=== PATIENT | female | born 1940 | race Caucasian/White ===

== ENCOUNTER 2024-04-04 04:31 | Emergency (ER) | payer OTHER, SELFPAY ==
[2024-04-04 04:34] VITALS: BP 202/106
[2024-04-04 04:58] VITALS: BMI 31.3
[2024-04-04 05:00] VITALS: BP 159/88
[2024-04-04 06:00] VITALS: BP 121/65
--- NOTE | 2024-04-04 06:53 | ED.GENMED ---
History of Present Illness
General
Chief Complaint: Nose Bleed
Time Seen by Provider: 04/04/24 06:53
History of Present Illness
History of Present Illness:
TIME OF INITIAL ENCOUNTER: 7 AM
HPI:
The patient presents with a left-sided nosebleed that started at 3 AM. Currently the symptoms have resolved after direct pressure was applied in the triage area. She did not take her blood pressure medication yet. She takes aspirin for
preventative reasons. No anticoagulation
EXAM:
GENERAL: Well appearing in no distress
HEENT: There is an area that suggests recent bleeding from the anterior left nasal septum
NEUROLOGIC: Excellent strength all extremities, no obvious coordination deficits
PSYCHIATRIC: Appropriate mental status, normal insight and judgement
EXTREMITIES: Nontender, no edema, moves all extremities equally
SKIN: No rash, no lesions
NUMBER AND COMPLEXITY OF PROBLEMS ADDRESSED AT THE ENCOUNTER
� Chronic conditions affecting care: Diverticular disease, high blood pressure, hyperlipidemia, GERD, diabetes
� Acute Exacerbation and/or Progression of Chronic Illness: This is an acute problem
� Differential Diagnosis includes: Nosebleed due to dry air, high blood , anterior epistaxis, posterior epistaxis
AMOUNT AND/OR COMPLEXITY OF DATA TO BE REVIEWED AND ANALYZED
� I performed an independent evaluation of and my interpretation is:
EKG:
CT:
X-rays:
Laboratory Studies:
Other:
� Review of other/old records: I reviewed records, the patient had a excision of the left elbow mass in February 2023
� Clinical information was obtained by an independent historian: I spoke to daughter at bedside
� Prescriptions/Medications Considered but not given:
� Further testing considered but not performed:
RISK OF COMPLICATIONS AND/OR MORBIDITY OR MORTALITY OF PATIENT MANAGEMENT
� Social determinants of health affecting care: Lives at home
� Discussion with other providers:
� Escalation of care including admission/observation vs risk of discharge considered: The patient was given direct pressure and then I cauterized an anterior portion of the left nasal septum and there is been no further bleeding.
ANY OTHER UPDATES:
Just prior to discharge, no further bleeding
Past History
Past History
ED Past Medical History: HTN, Hypercholesterolemia and NIDDM
Social History
Tobacco: Non-smoker
Phy Exam
Physical Exam
Physical Exam:
See HPI
Course
Vital Signs
Initial and Last Documented VS:
Initial Vital Signs
Pulse Resp BP Pulse Ox
82 20 202/106 95
04/04/24 04:34 04/04/24 04:34 04/04/24 04:34 04/04/24 04:34
Last Documented Vital Signs
Pulse Resp BP Pulse Ox
80 16 124/84 93
04/04/24 07:04 04/04/24 07:04 04/04/24 07:04 04/04/24 07:15
Procedures
Nosebleed
Drug treatment: none
Treatment: local pressure applied and Silver nitrate cautery
Post treatment bleeding: none- good control
*Critical Care Note
Total Time (30-74mins, 75-104mins- exclusive of procedures): Not Applicable
ED Attending Note
-
Portions of this chart may have been created with voice recognition software.� Occasional wrong word or��sound alike� substitutions may have occurred due to the inherent limitations of voice recognition software.
Discharge Plan
Departure
Patient Disposition: Home (Routine Discharge)
Date of Disposition: 04/04/24
Time of Disposition: 07:05
Patient with high blood pressure during this ER visit?: Yes
Discharge Problem:
Acute anterior epistaxis
Instructions: Nosebleeds (DC), BLOOD PRESSURE
Prescriptions:
No Action
atorvastatin [Lipitor] 40 mg Tablet
40 mg PO QPM
amlodipine 5 mg Tablet
5 mg PO DAILY
acetaminophen [Tylenol Arthritis] 650 mg Tablet Extended Release
1,300 mg PO Q8H PRN (Reason: pain)
esomeprazole magnesium [Nexium] 40 mg Capsule,Delayed Release(Dr/Ec)
40 mg PO DAILY
metoprolol tartrate 25 mg Tablet
25 mg PO BID
metformin 1,000 mg Tablet Extended Release 24 Hr
1,000 mg PO DAILY
Januvia 100 mg Tablet
100 mg PO DAILY
hydrochlorothiazide 12.5 mg Tablet
12.5 mg PO DAILY
biotin
1 tab PO DAILY
multivitamin
1 tab PO DAILY
Referrals:
UNKNOWN - PT DOES,NOT KNOW [Family Provider] -
Activity Restrictions/Additional Instructions:
Stop aspirin for 1 week. Be sure to continue your blood pressure medication. Consider using humidified air at home, use saline sprays to the nostrils to keep the nostrils moist. Return here if worse or other concerns. It is important to use
direct pressure if nosebleed recurs.
Interventions
Interventions:
*Risk Screen - Suicide Last Done: 04/04/24 04:32
*General Assessment Last Done: 04/04/24 05:00
*Neglect/Abuse Screening Last Done: 04/04/24 04:32
ED- Fall Risk Assessment Last Done: 04/04/24 05:00
*ED COVID-19 Vaccine History Last Done: 04/04/24 05:00
*Nursing Disposition Last Done: 04/04/24 07:34
ED-EENT Assessment Last Done: 04/04/24 07:33
Discharge Date and Time
Discharge Date/Time: 04/04/24 07:35
Print Language: PERSIAN
[2024-04-04 07:00] VITALS: BP 124/84
[2024-04-04 07:04] VITALS: BP 124/84
--- NOTE | 2024-04-04 07:34 | EDRN ---
the pt is able to ambulate independently and is able to dress herself for discharge
== END 2024-04-04 07:35 | disposition home or self-care (01) ==
LOC: EMR 04:31
PROVIDERS: EMERGENCY PHYSICIAN Emergency Medicine
DX: R04.0 Epistaxis (principal); E11.9 Type 2 diabetes mellitus without complications; E78.00 Pure hypercholesterolemia, unspecified; I10 Essential (primary) hypertension; K57.90 Diverticulosis of intestine, part unspecified, without perforation or abscess without bleeding; K21.9 Gastro-esophageal reflux disease without esophagitis; Z79.82 Long term (current) use of aspirin
CPT/HCPCS: 99283; 30901